=== PATIENT | male | born 2000 | race Caucasian/White ===

== ENCOUNTER 2022-08-15 20:55 | Emergency (ER) | payer OTHER ==
[~2022-08-15] VITALS: Ht 182.9 cm; Wt 69.0 kg
[2022-08-15 21:13] VITALS: O2SAT 98
[2022-08-15] MEDS ORDERED: KETOROLAC 30MG/ML VIAL IM ONE (23:30)
[2022-08-16] MEDS ORDERED: ACETAMINOPHEN 325MG TABLET PO ONE (00:15)
[2022-08-16] MEDS ORDERED: NAPR-1176 MT (00:33)
[2022-08-16 00:48] VITALS: BP 118/74; PULSE 88; RESP 14; TEMP 98
== END 2022-08-16 00:49 | disposition home or self-care (01) ==
LOC: ER 20:55
DX: S40.012A Contusion of left shoulder, initial encounter (principal); V49.49XA Driver injured in collision with other motor vehicles in traffic accident, initial encounter; Y93.89 Activity, other specified; Y92.89 Other specified places as the place of occurrence of the external cause; Y99.8 Other external cause status
CPT/HCPCS: 99283; 73030; J1885